=== PATIENT | male | born 1975 | race American Indian/Alaskan Native ===

== ENCOUNTER 2018-03-03 10:47 | Emergency (ER) | payer OTHER ==
[2018-03-03 10:58] VITALS: BP 126/84
[2018-03-03] MEDS ORDERED: DECADRON IM ONE (14:27)
[2018-03-03] MEDS ORDERED: MOTRIN PO ONE (14:27)
--- NOTE | 2018-03-03 14:33 | Emergency Department Report ---
ED Lower Extremity HPI - General Chief Complaint: Extremity Injury, Lower Stated Complaint: LEFT FOOT SWOLLEN Time Seen by Provider: 03/03/18 14:11 Source: patient Mode of arrival: Ambulatory Limitations: No Limitations - History of Present Illness Initial Comments: This is a 42-year-old male nontoxic, well nourished in appearance, no acute signs of distress presents to the ED with c/o of pain and swelling to left great toe x2 days. Patient denies any trauma. Patient denies any numbness, tingling, fever, chills, joint redness, chest pain, shortness of breathe, hedadhe, stiff neck. Patient denies any allergies or PMH. MD Complaint: foot injury -: days(s) (2) Injury: Toes: Right (great toe) Severity: mild Severity scale (0 -10): 8 Improves With: immobilization Worsens With: movement, palpation Associated Symptoms: swelling, able to partially bear weight, ambulatory. denies: snap/pop sensation, numbness, tingling, unable to bear weight - Related Data Previous Rx's Medication Instructions Recorded Last Taken Type HYDROcodone/APAP 5-325 [[place] 1 each PO Q6HR PRN #20 tablet 06/20/14 Unknown Rx 5/325] Ibuprofen [Motrin] 800 mg PO Q8H #30 tablet 06/20/14 Unknown Rx Ibuprofen [Motrin] 600 mg PO Q8H PRN #30 tablet 03/03/18 Unknown Rx Prednisone [predniSONE 10 mg 10 mg PO .TAPER #1 tab.ds.pk 03/03/18 Unknown Rx (6-Day Pack, 21 Tabs)] Allergies Allergy/AdvReac Type Severity Reaction Status Date / Time No Known Allergies Allergy Verified 03/03/18 10:56 ED Review of Systems ROS: Stated complaint: LEFT FOOT SWOLLEN Other details as noted in HPI Constitutional: denies: chills, fever Eyes: denies: eye pain, eye discharge, vision change ENT: denies: ear pain, throat pain Respiratory: denies: cough, shortness of breath, wheezing Cardiovascular: denies: chest pain, palpitations Endocrine: no symptoms reported Gastrointestinal: denies: abdominal pain, nausea, diarrhea Genitourinary: denies: urgency, dysuria Musculoskeletal: joint swelling, arthralgia. denies: back pain Skin: denies: rash, lesions Neurological: denies: headache, weakness, paresthesias Psychiatric: denies: anxiety, depression Hematological/Lymphatic: denies: easy bleeding, easy bruising ED Past Medical Hx - Past Medical History Previous Medical History?: No - Surgical History Past Surgical History?: No Additional Surgical History: tubes in both ears - Social History Smoking Status: Current Every Day Smoker Substance Use Type: None - Medications Home Medications: Home Medications Medication Instructions Recorded Confirmed Last Taken Type HYDROcodone/APAP 5-325 [[place] 1 each PO Q6HR PRN #20 tablet 06/20/14 Unknown Rx 5/325] Ibuprofen [Motrin] 800 mg PO Q8H #30 tablet 06/20/14 Unknown Rx Ibuprofen [Motrin] 600 mg PO Q8H PRN #30 tablet 03/03/18 Unknown Rx Prednisone [predniSONE 10 mg 10 mg PO .TAPER #1 tab.ds.pk 03/03/18 Unknown Rx (6-Day Pack, 21 Tabs)] ED Physical Exam - General Limitations: No Limitations General appearance: alert, in no apparent distress - Head Head exam: Present: atraumatic, normocephalic - Eye Eye exam: Present: normal appearance Pupils: Present: normal accommodation - ENT ENT exam: Present: normal exam, mucous membranes moist - Neck Neck exam: Present: normal inspection, full ROM. Absent: tenderness, meningismus - Respiratory Respiratory exam: Present: normal lung sounds bilaterally. Absent: respiratory distress, wheezes, rales, rhonchi, stridor - Cardiovascular Cardiovascular Exam: Present: regular rate, normal rhythm, normal heart sounds. Absent: irregular rhythm, systolic murmur, diastolic murmur, rubs, gallop - GI/Abdominal GI/Abdominal exam: Present: soft, normal bowel sounds - Rectal Rectal exam: Present: deferred - Extremities Exam Extremities exam: Present: normal inspection, full ROM, tenderness, normal capillary refill, joint swelling. Absent: pedal edema, calf tenderness - Expanded Lower Extremity Exam Left Hip exam: Present: normal inspection, full ROM Upper Leg exam: Present: normal inspection, full ROM Knee exam: Present: normal inspection, full ROM Lower Leg exam: Present: normal inspection, full ROM Ankle exam: Present: normal inspection, full ROM. Absent: tenderness, swelling , abrasion, laceration, ecchymosis, deformity, crepidus, dislocation, erythema, anterior draw sign Foot/Toe exam: Present: normal inspection, full ROM, tenderness, swelling. Absent: abrasion, laceration, ecchymosis, deformity, crepidus, dislocation, erythema, amputation, puncture wound, foreign body, calcaneal tenderness, tenderness at base of 5th metatarsal, nail avulsion, subungual hematoma Neuro vascular tendon exam: Present: no vascular compromise. Absent: pulse deficit, abnormal cap refill, motor deficit, sensory deficit, tendon deficit, extremity cold to touch, pallor, abnormal 2-point discrimination, decreased fine /light touch, foot drop, peroneal nerve deficit, significant pain with passive ROM of distal joint Gait: Positive: observed and limited by pain 1 - pain with swelling - Back Exam Back exam: Present: normal inspection, full ROM - Neurological Exam Neurological exam: Present: alert, oriented X3, normal gait - Psychiatric Psychiatric exam: Present: normal affect, normal mood - Skin Skin exam: Present: warm, dry, intact, normal color. Absent: rash - Other Other exam information: Area of left great toe is no redness or warm to touch. ED Course Vital Signs 03/03/18 10:56 Temperature 97.7 F Pulse Rate 92 H Respiratory 16 Rate Blood Pressure 126/84 O2 Sat by Pulse 100 Oximetry - Reevaluation(s) Reevaluation #1: 03/03/18 14:32 Patient is speaking in full sentences with no signs of distress noted. ED Lower Extremity MDM - Medical Decision Making This is a 42-year-old male that presents with hallux valgus. Patient stable and was examined by me. X-ray of the obtaining dictated by the radiologist. Uric acid obtained. Patient did receive Motrin and Decadron in the ED. There is no signs of any cellulitis or abscess. Not warm to touch or joint redness. Normal vital signs. Patient is discharged with prednisone Dosepak, naproxen. Patient was referred to Follow-up with a orthopedic doctor in 3-5 days or if symptoms worsen and continue return to emergency room as soon as possible. At time of discharge, the patient does not seem toxic or ill in appearance. No acute signs of distress noted. Patient agrees to discharge treatment plan of care. No further questions noted by the patient. Critical care attestation.: If time is entered above; I have spent that time in minutes in the direct care of this critically ill patient, excluding procedure time. ED Disposition Clinical Impression: Hallux valgus Qualifiers: Laterality: left Qualified Code(s): M20.12 - Hallux valgus (acquired), left foot Strain of toe Qualifiers: Encounter type: initial encounter Laterality: left Qualified Code(s): S96.912A - Strain of unspecified muscle and tendon at ankle and foot level, left foot, initial encounter Disposition: TO HOME OR SELFCARE Is pt being admited?: No Does the pt Need Aspirin: No Condition: Stable Instructions: Bunion (ED) Additional Instructions: Follow-up with a orthopedic doctor in 3-5 days or if symptoms worsen and continue return to emergency room as soon as possible. Prescriptions: Ibuprofen [Motrin] 600 mg PO Q8H PRN #30 tablet PRN Reason: Pain Prednisone [predniSONE 10 mg (6-Day Pack, 21 Tabs)] 10 mg PO .TAPER #1 tab.ds.pk Referrals: PRIMARY CAREMD [Primary Care Provider] - 3-5 Days ANA CLARK MD [Staff Physician] - 3-[address] [facility] [place] [Outside] - 3-5 Days [facility] [Outside] - 3-5 Days Forms: Work/School Release Form(ED)
--- NOTE | 2018-03-03 16:09 | XRay Report ---
FINAL REPORT EXAM: XR FOOT 2V LT HISTORY: foot pain TECHNIQUE: Two views left foot. PRIORS: None currently available. FINDINGS: There is no acute fracture. There is no evidence for healing fracture. There is no acute dislocation. Mild hallux valgus. No significant arthrosis at the 1st MTP joint. Interphalangeal joints are unremarkable. Achilles enthesophyte. There is no cortical destruction to suggest osteomyelitis. There are no suspicious osseous lesions. There are no radiopaque foreign objects. IMPRESSION: No acute osseous findings. Mild hallux valgus.
== END 2018-03-03 16:35 | disposition home or self-care (01) ==
LOC: ED 10:47
DX: S96.812A Strain of other specified muscles and tendons at ankle and foot level, left foot, initial encounter (principal); M20.12 Hallux valgus (acquired), left foot; F17.200 Nicotine dependence, unspecified, uncomplicated; X58.XXXA Exposure to other specified factors, initial encounter; Y93.89 Activity, other specified; Y92.89 Other specified places as the place of occurrence of the external cause; Y99.8 Other external cause status
CPT/HCPCS: 36415; 73620; 84550; 96372; 99284; J1100

== ENCOUNTER 2019-09-05 17:44 | Emergency (ER) | payer SELFPAY ==
[2019-09-05 17:54] VITALS: BP 116/76
--- NOTE | 2019-09-05 17:58 | Emergency Department Report ---
Chief Complaint: Back Pain/Injury Stated Complaint: BACK PAIN/EXTREME PAIN Time Seen by Provider: 09/05/19 17:52 - HPI History of Present Illness: This is a 43-year-old that presents to the ER with back pain for 2 weeks that is worsening. Patient states he saw Orthopedics a few years ago for back pain which resolved until 2 weeks ago. Reports pain as dull constant pain that is non-radiating. Denies injury, numbness/tingling, urinary changes, urinary/bowel changes, weakness, swelling, or bruising. - ROS Review of Systems: ROS: Stated complaint: BACK PAIN Other details as noted in HPI Comment: All other systems reviewed and negative - Exam Vital Signs: Vital Signs 09/05/19 17:53 Temperature 98.1 F Pulse Rate 80 Respiratory 18 Rate Blood Pressure 116/76 O2 Sat by Pulse 99 Oximetry Physical Exam: Gen.: No acute distress Neck: Normal appearance, no posterior midline tenderness, no meningismus Chest: Clear to auscultation bilaterally Cardiovascular: Regular rate and rhythm Back: Present: full ROM (pain with FROM), paraspinal tenderness (negative midline T/L spine, no stepoff or deformity). Absent: muscle spasm and rash Extremity: Full range of motion, normal appearance Neuro: Alert x 3, clear speech, no focal motor or sensory deficit Psychiatric: Appropriate Skin: No rash MSE screening note: Focused history and physical exam performed. Due to findings the following was ordered: ED Medical Decision Making - Medical Decision Making Patient was examined by me patient is stable. Negative midline tenderness and negative for any imaging. This is a acute on chronic low back pain. Start Ibuprofen, medrol dose pack, and robaxin for muscle strain of lower back. Instructed to Follow-up with primary care doctor in 3-5 days or if symptoms worsen such as bladder or bowel stability. Orthopedic referral given. At time of discharge, the patient does not seem toxic or ill in appearance. No acute signs of distress noted. He agrees to discharge treatment plan of care. No further questions noted by the mother. ED Disposition for MSE Clinical Impression: Strain of muscle, fascia and tendon of lower back, initial encounter Low back pain Qualifiers: Chronicity: acute Back pain laterality: bilateral Sciatica presence: without sciatica Qualified Code(s): M54.5 - Low back pain Disposition: TO HOME OR SELFCARE Is pt being admited?: No Condition: Stable Instructions: Muscle Strain (ED), Core Strengthening Exercises (GEN) Prescriptions: Ibuprofen [Motrin 600 MG tab] 600 mg PO Q8H PRN #20 tablet PRN Reason: Pain Prednisone [predniSONE 10 mg (6-Day Pack, 21 Tabs)] 10 mg PO .TAPER #1 tab.ds.pk Methocarbamol [Robaxin] 500 mg PO BID PRN #15 tablet PRN Reason: Muscle Spasm Referrals: ANA CLARK MD [Staff Physician] - 3-5 Days [facility] [Outside] - 3-5 Days [facility] [Outside] - 3-5 Days [facility] [Outside] - 3-5 Days Time of Disposition: 18:27
== END 2019-09-05 18:35 | disposition home or self-care (01) ==
LOC: ED 17:44
DX: S39.012A Strain of muscle, fascia and tendon of lower back, initial encounter (principal); X58.XXXA Exposure to other specified factors, initial encounter; Y93.89 Activity, other specified; Y92.89 Other specified places as the place of occurrence of the external cause; Y99.8 Other external cause status

== ENCOUNTER 2022-05-12 20:55 | Emergency (ER) | payer SELFPAY ==
--- NOTE | 2022-05-13 03:50 | Emergency Department Report ---
- General Chief complaint: Skin/Abscess/Foreign Body Stated complaint: HEAD AND FACIAL SWELLING Time Seen by Provider: 05/13/22 02:48 Source: patient Mode of arrival: Ambulatory Limitations: No Limitations - History of Present Illness Initial comments: Four 6-year-old male presents emerged from complaining of a pruritic rash to the head scalp of the neck after being out in the sun for an extended period of time. Ports no known contact with any plants or foreign substances. No fever, chills, sweats. No nausea, no vomiting, no headache, no blurred vision. MD complaint: rash Location: head Quality: burning Consistency: constant Improves with: none Worsens with: none Context: none Associated symptoms: denies other symptoms - Related Data Previous Rx's Medication Instructions Recorded Last Taken Type HYDROcodone/APAP 5-325 [[place] 1 each PO Q6HR PRN #20 tablet 06/20/14 Unknown Rx 5/325] Ibuprofen [Motrin] 800 mg PO Q8H #30 tablet 06/20/14 Unknown Rx Ibuprofen [Motrin] 600 mg PO Q8H PRN #30 tablet 03/03/18 Unknown Rx Ibuprofen [Motrin 600 MG tab] 600 mg PO Q8H PRN #20 tablet 09/05/19 Unknown Rx Methocarbamol [Robaxin] 500 mg PO BID PRN #15 tablet 09/05/19 Unknown Rx Prednisone [predniSONE 10 mg 10 mg PO .TAPER #1 tab.ds.pk 09/05/19 Unknown Rx (6-Day Pack, 21 Tabs)] Chlorhexidine Gluconate [Hibiclens] 10 ml TP BID #240 liquid 05/13/22 Unknown Rx cephALEXin [Keflex] 500 mg PO Q6HR #40 capsule 05/13/22 Unknown Rx hydrOXYzine HCL [Atarax] 25 mg PO Q6HR PRN #20 tablet 05/13/22 Unknown Rx Allergies Allergy/AdvReac Type Severity Reaction Status Date / Time No Known Allergies Allergy Verified 09/05/19 17:46 Abscess Boil HPI - HPI Chief Complaint: Skin/Abscess/Foreign Body Stated Complaint: HEAD AND FACIAL SWELLING Time Seen by Provider: 05/13/22 02:48 Home Medications: Previous Rx's Medication Instructions Recorded Last Taken Type HYDROcodone/APAP 5-325 [[place] 1 each PO Q6HR PRN #20 tablet 06/20/14 Unknown Rx 5/325] Ibuprofen [Motrin] 800 mg PO Q8H #30 tablet 06/20/14 Unknown Rx Ibuprofen [Motrin] 600 mg PO Q8H PRN #30 tablet 03/03/18 Unknown Rx Ibuprofen [Motrin 600 MG tab] 600 mg PO Q8H PRN #20 tablet 09/05/19 Unknown Rx Methocarbamol [Robaxin] 500 mg PO BID PRN #15 tablet 09/05/19 Unknown Rx Prednisone [predniSONE 10 mg 10 mg PO .TAPER #1 tab.ds.pk 09/05/19 Unknown Rx (6-Day Pack, 21 Tabs)] Chlorhexidine Gluconate [Hibiclens] 10 ml TP BID #240 liquid 05/13/22 Unknown Rx cephALEXin [Keflex] 500 mg PO Q6HR #40 capsule 05/13/22 Unknown Rx hydrOXYzine HCL [Atarax] 25 mg PO Q6HR PRN #20 tablet 05/13/22 Unknown Rx Allergies/Adverse Reactions: Allergies Allergy/AdvReac Type Severity Reaction Status Date / Time No Known Allergies Allergy Verified 09/05/19 17:46 ED Review of Systems ROS: Stated complaint: HEAD AND FACIAL SWELLING Other details as noted in HPI Comment: All other systems reviewed and negative ED Past Medical Hx - Past Medical History Previous Medical History?: Yes Hx Asthma: Yes - Surgical History Past Surgical History?: Yes Additional Surgical History: tubes in both ears - Social History Smoking Status: Never Smoker Substance Use Type: None - Medications Home Medications: Home Medications Medication Instructions Recorded Confirmed Last Taken Type HYDROcodone/APAP 5-325 [[place] 1 each PO Q6HR PRN #20 tablet 06/20/14 Unknown Rx 5/325] Ibuprofen [Motrin] 800 mg PO Q8H #30 tablet 06/20/14 Unknown Rx Ibuprofen [Motrin] 600 mg PO Q8H PRN #30 tablet 03/03/18 Unknown Rx Ibuprofen [Motrin 600 MG tab] 600 mg PO Q8H PRN #20 tablet 09/05/19 Unknown Rx Methocarbamol [Robaxin] 500 mg PO BID PRN #15 tablet 09/05/19 Unknown Rx Prednisone [predniSONE 10 mg 10 mg PO .TAPER #1 tab.ds.pk 09/05/19 Unknown Rx (6-Day Pack, 21 Tabs)] Chlorhexidine Gluconate [Hibiclens] 10 ml TP BID #240 liquid 05/13/22 Unknown Rx cephALEXin [Keflex] 500 mg PO Q6HR #40 capsule 05/13/22 Unknown Rx hydrOXYzine HCL [Atarax] 25 mg PO Q6HR PRN #20 tablet 05/13/22 Unknown Rx ED Physical Exam - General Limitations: No Limitations General appearance: alert, in no apparent distress - Head Head exam: Present: atraumatic, normocephalic, other - Expanded Head Exam Expanded 1 - Rash to this region with thematous with tiny papules/pustules 2 - Erythematous rash with pustules 3 - small, inflamed blister-like bumps and itching or prickling - Eye Eye exam: Present: normal appearance - ENT ENT exam: Present: mucous membranes moist - Neck Neck exam: Present: normal inspection, full ROM - Respiratory Respiratory exam: Present: normal lung sounds bilaterally. Absent: respiratory distress - Cardiovascular Cardiovascular Exam: Present: regular rate, normal rhythm. Absent: systolic murmur, diastolic murmur, rubs, gallop - GI/Abdominal GI/Abdominal exam: Present: soft, normal bowel sounds - Rectal Rectal exam: Present: deferred - Extremities Exam Extremities exam: Present: normal inspection - Back Exam Back exam: Present: normal inspection - Neurological Exam Neurological exam: Present: alert, oriented X3 - Psychiatric Psychiatric exam: Present: normal affect, normal mood - Skin Skin exam: Present: warm, dry, intact, normal color. Absent: rash ED Course Vital Signs 05/13/22 00:46 Temperature 98.5 F Pulse Rate 81 Respiratory 18 Rate Blood Pressure 133/89 O2 Sat by Pulse 96 Oximetry Critical care attestation.: If time is entered above; I have spent that time in minutes in the direct care of this critically ill patient, excluding procedure time. ED Disposition Clinical Impression: Miliaria rubra, Rash and nonspecific skin eruption Disposition: HOME / SELF CARE / HOMELESS Is pt being admited?: No Does the pt Need Aspirin: No Condition: Stable Instructions: Hives, Contact Dermatitis, [id number] Prescriptions: hydrOXYzine HCL [Atarax] 25 mg PO Q6HR PRN #20 tablet PRN Reason: Itching Chlorhexidine Gluconate [Hibiclens] 10 ml TP BID #240 liquid cephALEXin [Keflex] 500 mg PO Q6HR #40 capsule Referrals: ANDREW ALFARO MD [Staff Physician] - 3-5 Days
[2022-05-13 04:02] VITALS: BP 126/84
== END 2022-05-13 05:44 | disposition home or self-care (01) ==
LOC: ED 20:55
DX: L74.0 Miliaria rubra (principal); R21 Rash and other nonspecific skin eruption; J45.909 Unspecified asthma, uncomplicated; Z98.890 Other specified postprocedural states
CPT/HCPCS: 99282